=== PATIENT | male | born 1970 | race Caucasian/White ===

== ENCOUNTER → 2018-07-09 | Outpatient (CLI) | payer BC | LOC: M SLEEP 19:48 | DX: G47.33 Obstructive sleep apnea (adult) (pediatric) (principal) | CPT/HCPCS: 95811 ==

== ENCOUNTER → 2018-08-31 | Outpatient (CLI) | payer BC ==
--- NOTE | 2018-09-05 09:19 | SLEEPCENT ---
DATE OF PROCEDURE: 08/31/2018 ORDERING PROVIDER: La Tierney, copy to Juan R Abraham. INTERPRETATION: Nocturnal polysomnography was performed for the titration of pressure therapy in this patient with obstructive sleep apnea syndrome. Apnea-hypopnea index of 45. For testing the patient was fit with a [employer] Mirage full face mask of medium size, 4 cm of water pressure were applied to the circuit, and the lights were extinguished. 7 hours and 21 minutes of data were reviewed. There 398 minutes of sleep identified. Sleep latency was short at 4.5 minutes. REM latency was normal at 63 minutes. Sleep architecture improved with optimal pressure therapy. There was some evidence of REM rebound late in the study. Overall sleep efficiency was 92%. The electrocardiogram showed a sinus rhythm with an average heart rate of 68 beats per minute. EEG showed normal waveforms for awake and sleep. Respiratory events were best palliated with CPAP of pressure of +12. Remaining measures of sleep physiology were normal. IMPRESSION: Obstructive sleep apnea syndrome (G47.33) RECOMMENDATIONS: Nightly for pressure therapy 12cm of water. MTDD
== END ==
LOC: M SLEEP 19:57
PROVIDERS: ATTEND Nurse Practitioner Family
DX: G47.33 Obstructive sleep apnea (adult) (pediatric) (principal)